=== PATIENT | male | born 1990 | race Caucasian/White ===

== ENCOUNTER 2020-06-10 21:29 | Emergency (ER) | payer MEDICAID, SELFPAY ==
[2020-06-10 21:50] VITALS: BP 140/79; PULSE 86; RESP 18; TEMP 36.7; O2SAT 98; BMI 33.2
--- NOTE | 2020-06-10 23:06 | ED_ITS ---
HPI - General Adult General Chief complaint: General Medical Stated complaint: Flu like symptoms Time Seen by Provider: 06/10/20 22:08 Source: patient Mode of arrival: ambulatory Limitations: no limitations History of Present Illness HPI narrative: Patient comes to the emergency room complaining of body aches, 1 time episode of vomiting. Patient states that 1 week ago he was tested for COVID-19, he had the rapid and the PCR test done, both were negative. Patient's chasity is here in the emergency room getting treated for something different, while patient was waiting for his kentrelle, his sided to sign in to be tested. patient also requesting a flu test MD complaint: upper respiratory infection Related Data Allergies Allergy/AdvReac Type Severity Reaction Status Date / Time No Known Allergies Allergy Verified 06/10/20 23:05 Review of Systems Review of Systems: Constitutional : No Weight loss, complaining of subjective fever, chills, body aches ENT/Mouth : No Hearing loss, No Ear Pain, No Nasal Congestion, No Sinus Pain, No Hoarseness, No sore throat, No Rhinorrhea, No Swallowing Difficulty Eyes: No Eye Pain, No Swelling, No Redness, No Foreign Body, No Discharge, No Vision Changes Cardiovascular : No Chest Pain, No SOB, No Dyspnea on Exertion, No Orthopnea, No Edema, No Palpitations Respiratory : No Cough, No Sputum, No Wheezing, No Smoke Exposure, mild occasional dyspnea Gastrointestinal : 1 episode of vomiting, no nausea at this time, No Diarrhea, No Constipation, No abdominal Pain, No Hematochezia, No Melena Genitourinary : no irregular bleeding, No Dysuria, No Urinary Frequency, No Hematuria, No Urinary Incontinence, No Urgency, No Flank Pain, No Urinary Flow Changes, No Hesitancy Musculoskeletal : No joint pain, No Myalgias, No Joint Swelling Skin : No Skin Lesions, No rash Neuro : No Weakness, No Numbness, No Paresthesias, No Loss of Consciousness, No Dizziness, No Headache Psych : No Anxiety/Panic, No Depression, No SI/HI/AH/VH, No Social Issues, Heme/Lymph: No Bruising, No Bleeding,No Lymphadenopathy Endocrine : No Polyuria, No Polydipsia, No Temperature Intolerance PMFSH Social History Social History Advance Directives: No Advance Directives Information Provided: Yes Physical Exam 2 Vital Signs: Vital Signs: Last Vital Signs Temp 98.0 F 06/10/20 21:50 Pulse 86 06/10/20 21:50 Resp 18 06/10/20 21:50 BP 140/79 H 06/10/20 21:50 Pulse Ox 98 06/10/20 21:50 Body Mass Index 33.2 Appearance: Alert. Oriented X3. No acute distress. Eyes: Pupils equal, round and reactive to light. ENT: Pharynx normal. Neck: Normal inspection. Neck supple. No lymph nodes noted. No crepitus CVS: Normal heart rate and rhythm. Pulses normal. Normal S1 and S2 Respiratory: No respiratory distress. Breath sounds normal. No Wheezing. No rales Abdomen: Soft and nontender. No rigidity. No distention. good BS x4 Skin: Skin warm and dry. Normal skin color. Normal skin turgor. Extremities: No lower extremity edema. No lower extremity edema. No Lacerations. No Rash Neuro: Oriented X 3. No motor deficit. No sensory deficit. Moving all extermities. No slurred speech. Course Course Course Narrative: patient's physical exam within normal limits. Patient was tested for COVID-19 and influenza. Discharge Plan Discharge Clinical Impression: Upper respiratory infection, viral Patient Disposition: Home, Self-Care Instructions: Upper Respiratory Infection (ED) Additional Instructions: you were tested for COVID-19 and influenza. please remain self isolate until you get your results. Please follow-up with your primary care physician tomorrow. If you have any worsening or new symptoms, please return to the emergency room or call 911
[2020-06-11 00:33] LABS: Influenza A PCR NEGATIVE (Negative); Influenza B PCR NEGATIVE (Negative); Resp Syncy Virus RNA Qual PCR NEGATIVE (Negative); SARS COV2 PCR INHOUSE NEGATIVE (Negative)
== END 2020-06-11 00:30 | disposition home or self-care (01) ==
PROVIDERS: Emergency Provider Emergency Medicine
DX: J06.9 Acute upper respiratory infection, unspecified (principal); M79.10 Myalgia, unspecified site; Z20.828 Contact with and (suspected) exposure to other viral communicable diseases
CPT/HCPCS: 0241U; 99283

== ENCOUNTER 2020-10-11 12:51 | Emergency (ER) | payer MEDICAID, SELFPAY ==
[2020-10-11 13:14] VITALS: BP 128/87; PULSE 87; RESP 18; TEMP 37.1; O2SAT 97; BMI 33.9
--- NOTE | 2020-10-11 13:29 | ED_ITS ---
HPI - General Adult General Chief complaint: General Medical Stated complaint: covid symptoms Time Seen by Provider: 10/11/20 13:29 Source: patient Mode of arrival: ambulatory Limitations: no limitations History of Present Illness HPI narrative: May know/congestion/body aches for past 2 days similar to s/o who tested positive for COVID. He requesting COVID test. Otherwise no chest pain, shortness of breath, fever. Onset (ago): day(s) Radiation: non-radiation Severity: mild Relieving factors: none Exacerbating factors: none Associated symptoms: denies other symptoms Treatments prior to arrival: none Related Data Allergies Allergy/AdvReac Type Severity Reaction Status Date / Time No Known Allergies Allergy Verified 10/11/20 13:13 Review of Systems Review of Systems: Constitutional: No Weight loss, No Fever, No Chills, No Night Sweats, No Fatigue, No Malaise ENT/Mouth: No Hearing loss, No Ear Pain, + Nasal Congestion, No Sinus Pain, No Hoarseness, No sore throat, No Swallowing Difficulty Eyes: No Eye Pain, No Swelling, No Redness, No Foreign Body, No Discharge, No Vision Changes Cardiovascular: No Chest Pain, No SOB, No Dyspnea on Exertion, No Orthopnea, No Edema, No Palpitations Respiratory: No Cough, No Sputum, No Wheezing, No Smoke Exposure, No Dyspnea Gastrointestinal: No Nausea, No Vomiting, positive episode Diarrhea, No Constipation, No abdominal Pain, No Hematochezia, No Melena Genitourinary: no irregular bleeding, No Dysuria, No Urinary Frequency, No Hematuria, No Urinary Incontinence, No Urgency, No Flank Pain, No Urinary Flow Changes, No Hesitancy Musculoskeletal: No joint pain, + Myalgias, No Joint Swelling Skin: No Skin Lesions, No rash Neuro: No Weakness, No Numbness, No Paresthesias, No Loss of Consciousness, No Dizziness, No Headache Psych: No Social Issues Heme/Lymph: No Bruising, No Bleeding,No Lymphadenopathy Endocrine: No Polyuria, No Polydipsia, No Temperature Intolerance PMFSH Past Medical History Medical History Patient denies allergy Patient denies medical problems Social History Social History Advance Directives: No Physical Exam Vital Signs: Vital Signs: Last Vital Signs Temp 98.7 F 10/11/20 13:14 Pulse 87 10/11/20 13:14 Resp 18 10/11/20 13:14 BP 128/87 10/11/20 13:14 Pulse Ox 97 10/11/20 13:14 Body Mass Index 33.9 Reviewed Const: General: cooperative and healthy appearing; No acute distress or intoxicated appearing Nutritional Appearance: average body habitus Orientation/consciousness: patient oriented x3 HENMT: Head: Yes normal to inspection Ears: hearing grossly normal melba aterally Eyes: General: appearance normal, both eyes and all related structures Visual Rich: normal visual rich by confrontation Neck: Neck: Yes normal visual inspection, No positive Brudzinski's sign, No positive Kernig's sign and No tender Thyroid: Thyroid normal Chest: Chest palpation & inspection: normal inspection of the chest Resp: Effort & Inspection: normal respiratory effort Cardio: Jugular venous distension: no JVD Rhythm: regular rhythm Heart sounds: S1 normal heart sound present and S2 normal heart sound present GI: Inspection: Yes normal to inspection Palpation (GI): Soft to palpation Percussion: Yes normal to percussion Auscultation: normal bowel sounds : General: Yes no CVA tenderness Back/Spine/Pelvis: Back: no CVA tenderness Skin: General skin exam: no rashes or lesions noted Neuro: General: patient oriented x3 Extrem: General: Yes normal to inspection Course Course Course Narrative: Mild upper respiratory symptoms positive COVID, SO with same symptoms. Will fall supportive care, isolation precaution state and CDC guidelines. Clear return follow-up instructions provided. Stable for discharge. Medical Decision Making Lab Data Labs: Lab Results 10/11/20 Range/Units 13:44 COVID-19 (LEN) Positive A (Negative) COVID-19 Clin Com See Note Discharge Plan Discharge Clinical Impression: COVID-19 Patient Disposition: Home, Self-Care Instructions: COVID-19 (Coronavirus Disease 2019) (ED) Additional Instructions: Quarantine for 14 days Self-isolation Social distancing Supportive care Return/follow-up instructions provided Thank you Referrals: Physician,Unknown [Primary Care Provider] - 1 week (Phone visit)
[2020-10-11 14:01] LABS: IDNOW Serial# 9DD0AD1C
[2020-10-11 14:02] LABS: COVID-19 Test Positive (Negative)
== END 2020-10-11 14:58 | disposition home or self-care (01) ==
PROVIDERS: Nurse Practitioner Primary Care; Emergency Provider Emergency Medicine Emergency Medical Services
DX: U07.1 COVID-19 (principal)
CPT/HCPCS: 36415; 87635; 99283

== ENCOUNTER 2020-11-07 10:36 | Emergency (ER) | payer MEDICAID, SELFPAY ==
[2020-11-07 10:49] VITALS: BP 137/90; PULSE 77; RESP 18; TEMP 36.9; O2SAT 99; BMI 36.8
--- NOTE | 2020-11-07 11:34 | ED.GIBLEED ---
HPI - GI Bleed General Chief complaint: General Medical Stated complaint: BLOOD IN STOOLS Time Seen by Provider: 11/07/20 10:46 Source: patient Mode of arrival: ambulatory Limitations: no limitations History of Present Illness HPI Narrative: 30-year-old male with a past medical history of COVID-19 positive on 10/11/2020 and hemorrhoids presenting to the ED with complaints of rectal bleeding over the past 2 days. Reports that he is not sure if the blood is mixed in the stool although it is usually bright red blood when he wipes and in the toilet water after he finishes having a bowel movement for the past 2 days now resolved. Reports that he has had multiple colonoscopies in the past which were within normal limits per patient. Denies any fevers, dizziness, lightheadedness, neck pain/stiffness, chest pain, shortness of breath, dyspnea on exertion, cough, palpitations, abdominal pain, back pain, black stools or any other symptoms complaints or concerns at this time. Denies history of GI bleed, liver disease, rectal trauma, alcohol abuse, known esophageal varices, medications/supplement usage, foreign travel, unusual food intake, anticoagulation disorder, near syncope or any other symptoms complaints or concerns at this time. MD complaint: blood on toilet paper and gross hematochezia Onset (ago): day(s) (Two days) Pain Consistency: now resolved Severity: mild Relieving factors: none Exacerbating factors: bowel movement Context: hemorrhoids Associated symptoms: denies other symptoms Treatments Prior to Arrival: none Related Data Allergies Allergy/AdvReac Type Severity Reaction Status Date / Time No Known Allergies Allergy Verified 10/11/20 13:13 Review of Systems Review of Systems: Constitutional : No Weight loss, No Fever, No Chills, No Night Sweats, No Fatigue, NoMalaise ENT/Mouth: No ear pain, No sore throat, No Difficulty swallowing Cardiovascular : No Chest Pain, No SOB, No Dyspnea on Exertion, No Orthopnea, NoEdema, No Palpitations Respiratory : No Cough, No Sputum, No Wheezing, No Dyspnea Gastrointestinal : Positive blood in toilet and when wiping unsure if mixed with stools per patient, No Nausea, No Vomiting, No abdominal pain, No Diarrhea, No blood streaked emesis, No coffee-ground emesis, No gross hematemesis, No Melena Genitourinary : No irregular bleeding, No Dysuria, No Urinary Frequency, No Hematuria,No Urinary Incontinence, No Urgency, No Flank Pain Musculoskeletal : No joint pain, No Myalgias, No Joint Swelling Skin : No Skin Lesions, No rash Neuro : No Weakness, No Numbness, No Paresthesias, No Loss of Consciousness, NoDizziness, No Headache Psych : No Social Issues, Heme/Lymph: No Bruising, No Bleeding,No Lymphadenopathy Endocrine : No Polyuria, No Polydipsia, No Temperature Intolerance Yes all other systems are reviewed and are negative [facility] Past Medical History Attestation statement: The following information was validated with the patient. Medical History Patient denies allergy Patient denies medical problems Social History Social History Advance Directives: No Advance Directives Information Provided: No Physical Exam Vital Signs: Vital Signs: Last Vital Signs Temp 98.4 F 11/07/20 10:49 Pulse 77 11/07/20 10:49 Resp 18 11/07/20 10:49 BP 137/90 H 11/07/20 10:49 Pulse Ox 99 11/07/20 10:49 Body Mass Index 36.8 vital signs have been reviewed as normal and appeared to be correct. Blood pressure normal. Heart rate normal. Respiration rate normal. Temperature normal. Oxygen saturation normal. Appearance: Alert. Oriented X3. No acute distress. Head: Normal external exam. Normocephalic. Eyes: PERRLA. EOMI. Conjunctiva and sclera normal. Eyelids normal. ENT: Pharynx normal. Uvula midline. Moist mucous membranes. No trismus noted. No drooling noted. No muffled voice noted. Neck: Normal inspection. Neck supple. FROM. No adenopathy. No meningeal signs. CVS: Normal heart rate and rhythm. Heart sound normal. No murmurs noted. Pulses normal throughout. Respiratory: No respiratory distress. Painless inspiration. Breath sounds normal. No wheezes/rales/rhonchi noted. Chest nontender. No accessory muscle usage noted or decreased air movement noted. Abdomen: Soft and nontender. Nondistended. No guarding. No rigidity. Bowel sounds normal in all 4 quadrants. No distention noted. No organomegaly noted. No visible injury noted. No rebound tenderness. Negative Rovsing sign. Negative obturator's sign. Negative psoas sign. Negative Gutierrez sign. : Silk Blocker caitlin Henderson RN. External exam patient has external hemorrhoids no thrombosis/incarceration or active bleeding noted. On rectal exam patient has a normal stool color light brown positive stool occult. No active bleeding right now. Back: No CVA tenderness. Full range of motion noted. Skin: Skin warm and dry. Normal skin color. Normal skin turgor. No rashes/lesions/lacerations noted. Extremities: Extremities exhibit normal range of motion. Extremities nontender. Neuro: Oriented X 3. No motor deficit. No sensory deficit. Reflexes normal. Normal steady gait. Course Course Course Narrative: 30-year-old male with a past medical history of hemorrhoids presenting to the ED with 2 days of blood in the toilet and when he wipes he is unsure if it is mixed with the stools. Denies any other symptoms related to this. Denies any trauma rectal intercourse. Not on any blood thinners. Patient is positive for stool occult no abdominal tenderness is noted. Labs obtained and patient's labs all within normal limits. Stool occult was positive. Due to patient not having any abdominal pain and his H&H within normal limits will DC home with GI referral instructions return if any new or worsening symptoms. Patient understands agrees with this plan. MDM - GI Bleed Medical Records Attestation: I reviewed the patient's medical records. Lab Data Attestation: I reviewed the patient's lab results. Result diagrams: 11/07/20 11:41 11/07/20 11:41 Labs: Lab Results 11/07/20 11/07/20 11/07/20 Range/Units 11:41 11:41 11:41 WBC 7.7 (4.8-10.8) X10*3/uL RBC 5.10 (4.60-5.80) X10*6/uL Hgb 13.9 L (14.0-18.0) g/dl Hct 43.1 (42-52) % MCV 84.5 (80-98) fL MCH 27.3 (27.0-33.0) pg MCHC 32.3 (31.0-36.0) g/dl RDW 13.2 (11.0-16.0) % Plt Count 281 (160-400) X10*3/uL MPV 9.6 (9.4-12.4) fL Immature Gran % (Auto) 0.3 (0.0-0.4) % Neut % (Auto) 48.8 (45-73) % Lymph % (Auto) 39.8 (20-40) % [place] % (Auto) 9.2 (2-11) % Eos % (Auto) 1.6 (0-4) % Baso % (Auto) 0.3 (0-2) % Lymph # (Auto) 3.1 (1.2-4.9) X10*3/uL [place] # (Auto) 0.7 (0.1-1.2) X10*3/uL Eos # (Auto) 0.1 (0.0-0.4) X10*3/uL Baso # (Auto) 0.0 (0.0-0.2) X10*3/uL Abs Immat Gran (auto) 0.02 (0.00-0.03) X10*3/uL Absolute Neuts (auto) 3.8 (2.0-8.3) X10*3/uL Absolute Nucleated RBC 0.000 (0.0-0.012) X10*3/uL Nucleated RBC % (auto) 0.0 (0.0-0.2) /100WBC PT 12.1 (10.8-13.0) SEC INR 1.0 (0.9-1.1) Sodium (135-145) mmol/L Potassium (3.3-5.1) mmol/L Chloride (96-108) mmol/L Carbon Dioxide (22-29) mmol/L Anion Gap (12-20) BUN (9-16) mg/dL Creatinine (0.5-1.4) mg/dL Estim Creat Clear Calc Estimated GFR Random Glucose (60-115) mg/dL Calcium (8.4-10.2) mg/dL Magnesium 2.0 (1.6-2.6) mg/dL Total Bilirubin (0.0-1.0) mg/dL AST (5-37) U/L ALT (0-40) U/L Alkaline Phosphatase (39-117) U/L Total Protein (6.5-8.0) g/dL Albumin (3.5-5.0) g/dL Stool Occult Blood (NEGATIVE) 11/07/20 11/07/20 Range/Units 11:41 12:07 WBC (4.8-10.8) X10*3/uL RBC (4.60-5.80) X10*6/uL Hgb (14.0-18.0) g/dl Hct (42-52) % MCV (80-98) fL MCH (27.0-33.0) pg MCHC (31.0-36.0) g/dl RDW (11.0-16.0) % Plt Count (160-400) X10*3/uL MPV (9.4-12.4) fL Immature Gran % (Auto) (0.0-0.4) % Neut % (Auto) (45-73) % Lymph % (Auto) (20-40) % [place] % (Auto) (2-11) % Eos % (Auto) (0-4) % Baso % (Auto) (0-2) % Lymph # (Auto) (1.2-4.9) X10*3/uL [place] # (Auto) (0.1-1.2) X10*3/uL Eos # (Auto) (0.0-0.4) X10*3/uL Baso # (Auto) (0.0-0.2) X10*3/uL Abs Immat Gran (auto) (0.00-0.03) X10*3/uL Absolute Neuts (auto) (2.0-8.3) X10*3/uL Absolute Nucleated RBC (0.0-0.012) X10*3/uL Nucleated RBC % (auto) (0.0-0.2) /100WBC PT (10.8-13.0) SEC INR (0.9-1.1) Sodium 140 (135-145) mmol/L Potassium 4.4 (3.3-5.1) mmol/L Chloride 106 (96-108) mmol/L Carbon Dioxide 26 (22-29) mmol/L Anion Gap 12 (12-20) BUN 17 H (9-16) mg/dL Creatinine 1.00 (0.5-1.4) mg/dL Estim Creat Clear Calc 115.9 Estimated GFR > 60 Random Glucose 91 (60-115) mg/dL Calcium 9.5 (8.4-10.2) mg/dL Magnesium (1.6-2.6) mg/dL Total Bilirubin 0.5 (0.0-1.0) mg/dL AST 22 (5-37) U/L ALT 36 (0-40) U/L Alkaline Phosphatase 66 (39-117) U/L Total Protein 7.3 (6.5-8.0) g/dL Albumin 4.4 (3.5-5.0) g/dL Stool Occult Blood POSITIVE (NEGATIVE) Discharge Plan Discharge Clinical Impression: Fecal occult blood test positive, Hemorrhoids Patient Disposition: Home, Self-Care Instructions: Hemorrhoids (ED), Rectal Bleeding (ED) Referrals: Virginia Dash MD [Physician] - 1 day Stand Alone Forms: Work/School Release Print Language: Armenian
[2020-11-07 11:49] LABS: MANUAL DIFF FLAG NO
[2020-11-07 11:54] LABS: Basophils Percent Auto 0.3 % (0-2); Eosinophils Absolute Auto 0.1 X10*3/uL (0.0-0.4); Eosinophils Percent Auto 1.6 % (0-4); Hematocrit 43.1 % (42-52); Hemoglobin 13.9 g/dl (14.0-18.0); Imm Gran Abs Auto 0.02 X10*3/uL (0.00-0.03); Imm Gran Pct Auto 0.3 % (0.0-0.4); Lymphocytes Absolute Auto 3.1 X10*3/uL (1.2-4.9); Lymphocytes Percent Auto 39.8 % (20-40); Mean Corpuscular HGB Conc 32.3 g/dl (31.0-36.0); Mean Corpuscular Hemoglobin 27.3 pg (27.0-33.0); Mean Corpuscular Volume 84.5 fL (80-98); Mean Platelet Volume 9.6 fL (9.4-12.4); Monocytes Absolute Auto 0.7 X10*3/uL (0.1-1.2); Monocytes Percent Auto 9.2 % (2-11); Neutrophils Absolute Auto 3.8 X10*3/uL (2.0-8.3); Neutrophils Percent Auto 48.8 % (45-73); Platelet Count 281 X10*3/uL (160-400); Red Cell Distribution Width 13.2 % (11.0-16.0); White Blood Count 7.7 X10*3/uL (4.8-10.8)
[2020-11-07 11:59] LABS: Prothrombin Time 12.1 SEC (10.8-13.0)
--- NOTE | 2020-11-07 12:09 | PC.NURSE ---
pt refusing iv and ct scan w contrast. occult blood test sent. provider aware.
[2020-11-07 12:12] LABS: OBS Int Ctl Valid YES; OBS1 POSITIVE (NEGATIVE)
[2020-11-07 12:18] LABS: Alanine Aminotransferase 36 U/L (0-40); Albumin Level 4.4 g/dL (3.5-5.0); Alkaline Phosphatase 66 U/L (39-117); Anion Gap 12 (12-20); Aspartate Amino Transferase 22 U/L (5-37); Bilirubin Total 0.5 mg/dL (0.0-1.0); Blood Urea Nitrogen 17 mg/dL (9-16); Calcium 9.5 mg/dL (8.4-10.2); Carbon Dioxide 26 mmol/L (22-29); Chloride 106 mmol/L (96-108); Creatinine Clr Calc Pharmacy 115.9; Estimated Glomerular Filt Rate > 60; Glucose Random 91 mg/dL (60-115); Potassium 4.4 mmol/L (3.3-5.1); Sodium 140 mmol/L (135-145); Total Protein 7.3 g/dL (6.5-8.0)
== END 2020-11-07 12:30 | disposition home or self-care (01) ==
PROVIDERS: Physician Assistant Medical; Emergency Provider Emergency Medicine
DX: K62.5 Hemorrhage of anus and rectum (principal); R19.5 Other fecal abnormalities; K64.4 Residual hemorrhoidal skin tags
CPT/HCPCS: 36415; 80053; 82272; 83735; 85025; 85610; 99283; 99284

== ENCOUNTER 2021-07-22 08:11 | Emergency (ER) | payer MEDICAID, SELFPAY ==
--- NOTE | ~2021-07-22 | XR_ITS ---
EXAMINATION: CHEST X-RAY AND KUB CLINICAL INFORMATION: Cough. Constipation. COMPARISON: None TECHNIQUE: One view PA chest. One view upright AP view of the abdomen and pelvis FINDINGS: Chest: The cardiac and mediastinal contours are normal. The lungs are clear. There is no pleural effusion or pneumothorax. There is no free air. Bony structures are normal. KUB: Bowel gas pattern is normal. No evidence of obstruction or free air is seen. There does not appear to be a large amount of stool in the colon. No calcifications are seen. Bony structures are normal. XR/XR chest 1V IMPRESSION: Unremarkable exams.
--- NOTE | ~2021-07-22 | XR_ITS ---
EXAMINATION: CHEST X-RAY AND KUB CLINICAL INFORMATION: Cough. Constipation. COMPARISON: None TECHNIQUE: One view PA chest. One view upright AP view of the abdomen and pelvis FINDINGS: Chest: The cardiac and mediastinal contours are normal. The lungs are clear. There is no pleural effusion or pneumothorax. There is no free air. Bony structures are normal. KUB: Bowel gas pattern is normal. No evidence of obstruction or free air is seen. There does not appear to be a large amount of stool in the colon. No calcifications are seen. Bony structures are normal. XR/XR KUB IMPRESSION: Unremarkable exams.
[2021-07-22 08:17] VITALS: PULSE 68; RESP 19; TEMP 531.6; TEMP 989; O2SAT 98; BMI 35.6
--- NOTE | 2021-07-22 09:49 | ED_ITS ---
HPI - URI/Sore Throat General Chief Complaint: Upper Respiratory Symptoms Stated Complaint: Abd pain/back pain Time Seen by Provider: 07/22/21 09:46 Source: patient Mode of arrival: ambulatory Limitations: no limitations History of Present Illness HPI Narrative: 31-year-old male no known medical history presents to the emergency department with complaints of diffuse abdominal pain and cough x2 days. Patient tells me that he has been having a dry cough, severe in nature, he tells me when he coughs his back hurts. He also tells me that he feels like he might be slightly constipated, he tells me it feels like he needs to have a large bowel movement however he is not going as much as he usually does. He r eports diffuse abdominal pain his last bowel movement was yesterday he had a small bowel movement. He reports no abdominal surgeries. He denies fevers, chills, nausea, vomiting, diarrhea, chest pain, shortness of breath. He is vaccinated against [employer] x2. No recent sick contacts. MD elicited complaint: cough Onset (ago): day(s) (2) Consistency: intermittent Severity: severe Description of mucous: other (no mucus) Able to tolerate fluids by mouth: Yes Exacerbating factors: nothing Relieving factors: nothing Associated symptoms: abdominal pain Treatments prior to arrival: none Related Data Previous Rx's Medication Instructions Recorded albuterol sulfate 90 mcg/actuation 2 inh INHALATION Q4-6H PRN #1 ea 07/22/21 breath activated powder inhaler benzonatate 100 mg capsule 100 mg PO BID PRN #20 cap 07/22/21 Allergies Allergy/AdvReac Type Severity Reaction Status Date / Time No Known Allergies Allergy Verified 10/11/20 13:13 Review of Systems Review of Systems: Constitutional : No Weight loss, No Fever, No Chills, No Fatigue, No Malaise ENT/Mouth : No sore throat, No Rhinorrhea Eyes: No Eye Pain, No Swelling, No Redness Cardiovascular : No Chest Pain, No SOB, No Dyspnea on Exertion, No Orthopnea, No Edema, No Palpitations Respiratory : + Cough, No Sputum, No Wheezing Gastrointestinal : No Nausea, No Vomiting, No Diarrhea, No Constipation, + abdominal Pain, No Hematochezia, No Melena Genitourinary : No Dysuria, No Urinary Frequency, No Hematuria, Musculoskeletal : No joint pain, No Myalgias, No Joint Swelling Skin : No Skin Lesions, No rash Neuro : No Weakness, No Numbness, No Dizziness, No Headache All other systems reviewed and are negative Yes all other systems are reviewed and are negative [facility] Past Medical History Attestation statement: The following information was validated with the patient. Source: old records reviewed and nursing notes reviewed Medical History Patient denies allergy Patient denies medical problems Social History Social History Advance Directives: No Advance Directives Information Provided: No Physical Exam Vital Signs: Vital Signs: Last Vital Signs Temp 989 F H 07/22/21 08:17 Pulse 68 07/22/21 11:02 Resp 18 07/22/21 11:02 Pulse Ox 98 07/22/21 08:17 BMI result Body Mass Index 35.6 VSS Appearance: Alert.? Oriented X3.? No acute distress.? Head: Normocephalic, atraumatic, no step-offs or deformities Eyes: Pupils equal, round and reactive to light.? ENT: Pharynx normal.? Neck: Normal inspection.? Neck supple.? CVS: Normal heart rate and rhythm.? Pulses normal.? Respiratory: No respiratory distress.? Breath sounds normal.? Abdomen: Soft and + diffusely tender. Non distended. Normoactive bowel sounds.? Skin: Skin warm and dry.? Normal skin color.? Normal skin turgor.? Extremities: No lower extremity edema.? No calf ttp. 5/5 strength to bilateral upper and lower extremities Back: No midline tenderness, no C-spine tenderness, full range of motion, no CVA tenderness bilaterally Neuro: Oriented X 3.? No motor deficit.? No sensory deficit. Course Reevaluation(s) Reevaluation #1: I offered patient a CT to rule out diverticulitis and appendicitis however patient refuses, he says he will do this on an outpatient basis as he does not want to wait. I told patient that these 2 could potentially be life-threatening, he assumes all risks he tells me and he will follow up with the PCP keeps telling me that he wants a CT scan outpatient and a colonoscopy outpatient. Patient has been given an inhaler for his cough, and I have given him benzonate perles for bronchitis I have advised him to return to the emergency department with new or worsening symptoms such as shortness of breath, fevers, chills, nausea, vomiting, chest pain, headache, dizziness. At this time unlikely that this is appendicitis no right lower quadrant tenderness, he has diffuse abdominal tenderness. Also, patient's white blood cell count within normal limits. Patient appears nontoxic and well. CRP is noted to be elevated however this is nonspecific patient does tell me th at he has been having changes in bowel habits lately alternating between constipation, and diarrhea from time to time, he tells me sometimes he leaks after having bowel movements. I advised him to follow-up with Gastroenterology. This is not urgent and I did not make a call out to them, he can do this on an outpatient basis. No localized pain to the left lower quadrant, unlikely diverticulitis. Unlikely PE patient is saturating 98-99% on room air, he is not tachycardic or tachypneic. No calf tenderness to palpation Unlikley SBO Likely bronchitis. Time: 11:10 MDM - URI/Sore Throat MDM Narrative Medical decision making narrative: [id number] 31 yo male presents with dry hackin severe cough causing back pain, and diffuse abdominal discomfort with constipation X2 days. Fully vaccinated pfizer X2. No sick contacts PE significant for diffuse abdominal tenderness, not distended, normoactive bowel sounds Plan- KUB, CBC,CMP, CRP,Lipase,mag, covid Unlikley SBO, normal bowel sounds, no abodminal surgeries, patient still passing stool Medical Records Attestation: I reviewed the patient's medical records. Lab Data Attestation: I reviewed the patient's lab results. Result diagrams: 07/22/21 09:54 07/22/21 09:54 Labs: Lab Results 07/22/21 07/22/21 07/22/21 Range/Units 09:36 09:54 09:54 WBC 8.8 (4.8-10.8) X10*3/uL RBC 5.28 (4.60-5.80) X10*6/uL Hgb 13.9 L (14.0-18.0) g/dl Hct 43.0 (42.0-52.0) % MCV 81.4 (80.0-98.0) fL MCH 26.3 L (27.0-33.0) pg MCHC 32.3 (31.0-36.0) g/dl RDW 13.4 (11.0-16.0) % Plt Count 333 (160-400) X10*3/uL MPV 9.5 (9.4-12.4) fL Immature Gran % (Auto) 0.3 (0.0-0.4) % Neut % (Auto) 58.1 (45-73) % Lymph % (Auto) 31.2 (20-40) % [place] % (Auto) 8.1 (2-11) % Eos % (Auto) 2.2 (0-4) % Baso % (Auto) 0.1 (0-2) % Lymph # (Auto) 2.7 (1.2-4.9) X10*3/uL [place] # (Auto) 0.7 (0.1-1.2) X10*3/uL Eos # (Auto) 0.2 (0.0-0.4) X10*3/uL Baso # (Auto) 0.0 (0.0-0.2) X10*3/uL Abs Immat Gran (auto) 0.03 (0.00-0.03) X10*3/uL Absolute Neuts (auto) 5.1 (2.0-8.3) x10*3/uL Absolute Nucleated RBC 0.000 (0.0-0.012) X10*3/uL Nucleated RBC % (auto) 0.0 (0.0-0.2) /100WBC Sodium 139 (135-145) mmol/L Potassium 4.6 (3.3-5.1) mmol/L Chloride 103 (96-108) mmol/L Carbon Dioxide 27 (22-29) mmol/L Anion Gap 14 (12-20) BUN 17 H (9-16) mg/dL Creatinine 0.96 (0.5-1.4) mg/dL Estim Creat Clear Calc 125.7 Estimated GFR > 60 Random Glucose 97 (60-115) mg/dL Calcium 9.9 (8.4-10.2) mg/dL Magnesium 2.2 (1.6-2.6) mg/dL Total Bilirubin 0.4 (0.0-1.0) mg/dL AST 29 (5-37) U/L ALT 38 (0-40) U/L Alkaline Phosphatase 78 (39-117) U/L C-Reactive Protein 2.51 H (< or = 0.50) mg/dL Total Protein 7.7 (6.5-8.0) g/dL Albumin 4.3 (3.5-5.0) g/dL Lipase 11 (8-78) U/L COVID-19 (LEN) Negative (Negative) COVID-19 Clin Com See Note Imaging Data CXR and KUB: Attestation: I personally reviewed and interpreted this imaging study as follows: Radiologist's impression: FINDINGS: Chest: The cardiac and mediastinal contours are normal. The lungs are clear. There is no pleural effusion or pneumothorax. There is no free air. Bony structures are normal. KUB: Bowel gas pattern is normal. No evidence of obstruction or free air is seen. There does not appear to be a large amount of stool in the colon. No calcifications are seen. Bony structures are normal.? XR/XR KUB IMPRESSION: Unremarkable exams.? Critical Care Time Critical Care Time Critical Care Time: No Discharge Plan Discharge Clinical Impression: Bronchitis, Abdominal pain Patient Disposition: Home, Self-Care Instructions: Constipation (ED), Acute Bronchitis (ED) Additional Instructions: Take your medications as prescribed. If you were prescribed antibiotics today, it is important that you take your medication to their entirety, do not skip any doses, do not finish them early. You tested negative for COVID-19 today. You can take [id number] stool softeners as needed for constipation however, your KUB did not show constipation. Follow-up with your primary care provider this week. Follow up with GI if your concenred about your bowel habits. Return to the emergency department with new or worsening symptoms. Such as worsening abdominal pain, nausea, vomiting, chest pain, shortness of breath, fevers or chills. In case of emergency call 911 Prescriptions: New benzonatate 100 mg capsule 100 mg PO BID PRN (Reason: cough) Qty: 20 RF: 0 albuterol sulfate 90 mcg/actuation aerosol powdr breath activated 2 inh inhalation Q4-6H PRN (Reason: shortness of breath or wheezing) Qty: 1 RF: 0 Referrals: Physician,Svetlana [Primary Care Provider] - 2 days Adama Braxton [Physician] - 1 week Stand Alone Forms: Work/School Release
[2021-07-22 09:59] LABS: COVID-19 Test Negative (Negative)
[2021-07-22 10:01] LABS: MANUAL DIFF FLAG NO
[2021-07-22 10:02] LABS: Basophils Percent Auto 0.1 % (0-2); Eosinophils Absolute Auto 0.2 X10*3/uL (0.0-0.4); Eosinophils Percent Auto 2.2 % (0-4); Hemoglobin 13.9 g/dl (14.0-18.0); Imm Gran Abs Auto 0.03 X10*3/uL (0.00-0.03); Imm Gran Pct Auto 0.3 % (0.0-0.4); Lymphocytes Absolute Auto 2.7 X10*3/uL (1.2-4.9); Lymphocytes Percent Auto 31.2 % (20-40); Mean Corpuscular HGB Conc 32.3 g/dl (31.0-36.0); Mean Corpuscular Hemoglobin 26.3 pg (27.0-33.0); Mean Corpuscular Volume 81.4 fL (80.0-98.0); Mean Platelet Volume 9.5 fL (9.4-12.4); Monocytes Absolute Auto 0.7 X10*3/uL (0.1-1.2); Monocytes Percent Auto 8.1 % (2-11); Neutrophils Absolute Auto 5.1 x10*3/uL (2.0-8.3); Neutrophils Percent Auto 58.1 % (45-73); Platelet Count 333 X10*3/uL (160-400); Red Blood Count 5.28 X10*6/uL (4.60-5.80); Red Cell Distribution Width 13.4 % (11.0-16.0); White Blood Count 8.8 X10*3/uL (4.8-10.8)
[2021-07-22 10:50] LABS: Alanine Aminotransferase 38 U/L (0-40); Albumin Level 4.3 g/dL (3.5-5.0); Alkaline Phosphatase 78 U/L (39-117); Anion Gap 14 (12-20); Aspartate Amino Transferase 29 U/L (5-37); Bilirubin Total 0.4 mg/dL (0.0-1.0); Blood Urea Nitrogen 17 mg/dL (9-16); C Reactive Protein 2.51 mg/dL (< or = 0.50); Calcium 9.9 mg/dL (8.4-10.2); Carbon Dioxide 27 mmol/L (22-29); Chloride 103 mmol/L (96-108); Creatinine Clr Calc Pharmacy 125.7; Estimated Glomerular Filt Rate > 60; Glucose Random 97 mg/dL (60-115); Lipase 11 U/L (8-78); Magnesium 2.2 mg/dL (1.6-2.6); Potassium 4.6 mmol/L (3.3-5.1); Sodium 139 mmol/L (135-145); Total Protein 7.7 g/dL (6.5-8.0)
[2021-07-22] MEDS: Albuterol Sulfate 90 MCG 8 GM INHALER 2 PUFF INHALE (10:59)
[2021-07-22 11:02] VITALS: PULSE 68; RESP 18; O2SAT 98
== END 2021-07-22 11:30 | disposition home or self-care (01) ==
PROVIDERS: Physician Assistant; Emergency Provider Emergency Medicine
DX: J40 Bronchitis, not specified as acute or chronic (principal); R50.9 Fever, unspecified; R10.9 Unspecified abdominal pain; M54.50 Low back pain, unspecified; Z20.822 Contact with and (suspected) exposure to COVID-19; Z79.899 Other long term (current) drug therapy
CPT/HCPCS: 36415; 71045; 74018; 80053; 83690; 83735; 85025; 86140; 87635; 94640; 99283; 99284

== ENCOUNTER 2021-08-26 16:56 | Emergency (ER) | payer MEDICAID, SELFPAY ==
--- NOTE | ~2021-08-26 | XR_ITS ---
EXAMINATION: XR FOOT, RIGHT CLINICAL INFORMATION: First toe swelling. COMPARISON: None. TECHNIQUE: AP, lateral, and oblique views of the right foot. FINDINGS: There is a minimally displaced avulsion fracture in the medial base of the proximal phalanx of the first toe which extends into the intra-articular surface. No other fractures. There is associated posttraumatic soft tissue swelling. No unexpected foreign bodies. XR/XR foot RT min 3V IMPRESSION: Mildly displaced fracture in the medial surface of the proximal phalanx of the first toe.
[2021-08-26 17:01] VITALS: BP 145/95; PULSE 90; RESP 18; TEMP 36.5; O2SAT 97; BMI 35.5
--- NOTE | 2021-08-26 18:09 | ED.LOWEXIN ---
HPI - Extremity Injury (Lower) General Chief Complaint: Extremity Injury, Lower Stated Complaint: foot pain/INJ Time Seen by Provider: 08/26/21 18:07 Source: patient Mode of arrival: ambulatory Limitations: no limitations History of Present Illness HPI Narrative: This is a 31-year-old male past medical history significant for hemorrhoids presenting to the emergency complaints of severe right foot pain status post kciking his garbage can earlier this morning. Patient tells me that he kicked the garbage his foot started hurting and then he kicked the door frame, he did this because he was angry. He tells me he is no longer angry, he was initially mad at his car. Says he just wants imaging to ensure its not broken. Patient ambulating well however, he reports pain worse with ambulation and weight-bearing better at rest. MD complaint: foot injury Onset (ago): hour(s) (7) Type of Injury: blunt Place: home Severity: mild Relieving factors: other (non weight bearing ) Exacerbating factors: weight bearing and movement Context: direct blow Other symptoms: none Related Data Previous Rx's Medication Instructions Recorded albuterol sulfate 90 mcg/actuation 2 inh INHALATION Q4-6H PRN #1 ea 07/22/21 breath activated powder inhaler benzonatate 100 mg capsule 100 mg PO BID PRN #20 cap 07/22/21 Allergies Allergy/AdvReac Type Severity Reaction Status Date / Time No Known Allergies Allergy Verified 08/26/21 17:01 Review of Systems Review of Systems: Constitutional : No Weight loss, No Fever, No Chills, No Fatigue, No Malaise ENT/Mouth : No sore throat, No Rhinorrhea Eyes: No Eye Pain, No Swelling, No Redness Cardiovascular : No Chest Pain, No SOB, No Dyspnea on Exertion, No Orthopnea, No Edema, No Palpitations Respiratory : No Cough, No Sputum, No Wheezing Gastrointestinal : No Nausea, No Vomiting, No Diarrhea, No Constipation, No abdominal Pain, No Hematochezia, No Melena Genitourinary : No Dysuria, No Urinary Frequency, No Hematuria, Musculoskeletal : + joint pain, No Myalgias, No Joint Swelling Skin : No Skin Lesions, No rash Neuro : No Weakness, No Numbness, No Dizziness, No Headache Psych : No Anxiety/Panic, No Depression All other systems reviewed and are negative Yes all other systems are reviewed and are negative [facility] Past Medical History Attestation statement: The following information was validated with the patient. Source: old records reviewed and nursing notes reviewed Medical History Patient denies allergy Patient denies medical problems Social History Social History Advance Directives: No Advance Directives Information Provided: No Physical Exam Vital Signs: Vital Signs: Last Vital Signs Temp 97.7 F 08/26/21 17:01 Pulse 90 08/26/21 17:01 Resp 18 08/26/21 17:01 BP 145/95 H 08/26/21 17:01 Pulse Ox 97 08/26/21 17:01 BMI result Body Mass Index 35.5 VSS Appearance: Alert.? Oriented X3.? No acute distress.? Head: Normocephalic, atraumatic, no step-offs or deformities Eyes: Pupils equal, round and reactive to light.? ENT: Pharynx normal.? Neck: Normal inspection.? Neck supple.? CVS: Normal heart rate and rhythm.? Pulses normal.? Respiratory: No respiratory distress.? Breath sounds normal.? Abdomen: Soft and nontender.? Skin: Skin warm and dry.? Normal skin color.? Normal skin turgor.? Extremities: No lower extremity edema.? No calf ttp. 5/5 strength to bilateral upper and lower extremities + bilateral posterior tibialis and dorsalis pedis pulses 2+ equal bilateral. Normal strength to bilateral lower extremities all toes with normal sensation, able to wiggle toes, able to ambulate with steady gait. Does report pain with ambulation. Some tenderness over the proximal aspect of 1st toe. No evident ligament or tendon involvement. No distracting injuries. Back: No midline tenderness, no C-spine tenderness, full range of motion, no CVA tenderness bilaterally Neuro: Oriented X 3.? No motor deficit.? No sensory deficit. CN 2-12 intact Course Reevaluation(s) Reevaluation #1: Patient placed in walking shoe, crutches. Advised him to return with new or worsening symptoms. Advised to follow-up with Ortho. Patient educated on his condition, no questions. Comfortable discharge home. Sensory and motor intact upon discharge. NV intact Time: 18:15 MDM - Extremity Injury (Lower) MDM Narrative Medical decision making narrative: 1813 31 yo male presents with right foot pain s/p kicking a garbage can and door frame out of anger this am pe significant for bilateral posterior tibialis and dorsalis pedis pulses 2+ equal bilateral. Normal strength to bilateral lower extremities all toes with normal sensation, able to wiggle toes, able to ambulate with steady gait. Does report pain with ambulation. Some tenderness over the proximal aspect of 1st toe. No evident ligament or tendon involvement. No distracting injuries. plan- walking shoe and crutches. Medical Records Attestation: I reviewed the patient's medical records. Lab Data Attestation: I reviewed the patient's lab results. Critical Care Time Critical Care Time Critical Care Time: No Discharge Plan Discharge Clinical Impression: Fracture of toe Patient Disposition: Home, Self-Care Instructions: Crutch Instructions (ED), Toe Fracture (ED), Post Surgical Shoe (ED) Additional Instructions: Take your medications as prescribed. If you were prescribed antibiotics today, it is important that you take your medication to their entirety, do not skip any doses, do not finish them early. Follow-up with your primary care provider this week. Follow-up with orthopedics if his symptoms do not improve in 1-2 weeks. Use crutches as instructed. Return to the emergency department with new or worsening symptoms. Such as numbness, tingling, fevers, chills, leg swelling, severe pain. In case of emergency call 911 Prescriptions: No Action benzonatate 100 mg capsule 100 mg PO BID PRN (Reason: cough) Qty: 20 0RF albuterol sulfate 90 mcg/actuation aerosol powdr breath activated 2 inh inhalation Q4-6H PRN (Reason: shortness of breath or wheezing) Qty: 1 0RF Referrals: Wood Ca MD [Physician] - 2 weeks Physician,Unknown J [Primary Care Provider] - 2 days Stand Alone Forms: Work/School Release
== END 2021-08-26 19:23 | disposition home or self-care (01) ==
LOC: HO.ED 18:33
PROVIDERS: Emergency Provider Internal Medicine
DX: S92.411A Displaced fracture of proximal phalanx of right great toe, initial encounter for closed fracture (principal); W22.8XXA Striking against or struck by other objects, initial encounter; Y93.89 Activity, other specified; Y92.017 Garden or yard in single-family (private) house as the place of occurrence of the external cause; Y99.9 Unspecified external cause status
CPT/HCPCS: 73630; 99283; 99284

== ENCOUNTER → 2021-09-11 09:53 | Outpatient (BNVA) | payer MEDICAID, SELFPAY | PROVIDERS: Visit Provider Physician Assistant | DX: S92.401A Displaced unspecified fracture of right great toe, initial encounter for closed fracture (principal) | CPT/HCPCS: 99202 ==